=== PATIENT | male | born 1975 | race Caucasian/White ===

== ENCOUNTER 2017-05-11 15:37 | Emergency (ER) | payer OTHER ==
[~2017-05-11] VITALS: Ht 185.4 cm; Wt 99.0 kg
[~2017-05-11 15:37] MED LIST: LEVO.05 PO; OMEP20CA2; SERT-129 PO
[2017-05-11 15:44] VITALS: BP 150/98; PULSE 82; RESP 16; TEMP 98.6; O2SAT 96
--- NOTE | 2017-05-11 15:50 | PD ---
HPI Chief Complaint: Fall Time Seen by Provider: 15:50 Travel History International Travel<30 days: No Contact w/Intl Traveler<30days: No Traveled to known affect area: No PFSH Past Medical History Diminished Hearing: No Immunizations Current: No Social History Alcohol Use: Yes (OCCASIONALLY) Tobacco Use: Yes (QUIT 4 YRS AGO) Substance Use: No Allergies-Medications (Allergen,Severity, Reaction): Coded Allergies: No Known Allergies (Verified , 11/15/16) Reported Meds & Prescriptions Reported Meds & Active Scripts Active Sertraline (Sertraline HCl) 100 Mg Tab 200 Mg PO DAILY Synthroid (Levothyroxine Sodium) 50 Mcg Tab 50 Mcg PO DAILY Reported Omeprazole 20 Mg Cap Data Data Last Documented VS Vital Signs Date Time Temp Pulse Resp B/P Pulse Ox O2 Delivery O2 Flow Rate FiO2 05/11/17 15:44 98.6 82 16 150/98 96 Orders Basic Metabolic Panel (Bmp) (05/11/17 15:55) Complete Blood Count With Diff (05/11/17 15:55) Prothrombin Time / Inr (Pt) (05/11/17 15:55) Act Partial Throm Time (Ptt) (05/11/17 15:55) Chest, Single Ap (05/11/17 15:55) Pelvis, Ap Only (Routine) (05/11/17 15:55) Ct Brain W/O Iv Contrast(Rout) (05/11/17 15:55) Ct Cerv Spine W/O Contrast (05/11/17 15:55) Ct Abd/Pel W Iv Contrast(Rout) (05/11/17 15:55) Ct Thorax/ Chest W Iv Contrast (05/11/17 15:55) Ct Thor Spine W/O Contrast (05/11/17 15:55) Ct Lumb Spine W/O Contrast (05/11/17 15:55) Iv Access Insert/Monitor (05/11/17 15:55) Ecg Monitoring (05/11/17 15:55) Oximetry (05/11/17 15:55) Sodium Chloride 0.9% Flush (Ns Flush) (05/11/17 16:00) Rosa Alexander May 11, 2017 15:50
[2017-05-11] MEDS ORDERED: SODIUM CHLORIDE 0.9% FLUSH 10 ML FLUSH IVF PRN (16:00)
--- NOTE | 2017-05-11 16:04 | PD ---
HPI Chief Complaint: Fall Time Seen by Provider: 15:44 Travel History International Travel<30 days: No Contact w/Intl Traveler<30days: No Traveled to known affect area: No History of Present Illness HPI This patient was checking on something up in his attic and fell through the roof to the hardwood floor below. He fell approximately 8-10 feet and landed on his back. He complains of lower back pain. He also struck his head and has headache. He denies loss of consciousness. Has some neck soreness as well. Symptoms moderately severe. Duration 1 hour. He is brought in by paramedics in full immobilization. He does not take any blood thinners. No alleviating factors. Not having arm or leg pain. PFSH Past Medical History Diminished Hearing: No Immunizations Current: No Social History Alcohol Use: Yes Tobacco Use: Yes Substance Use: No Allergies-Medications (Allergen,Severity, Reaction): Coded Allergies: No Known Allergies (Verified , 11/15/16) Reported Meds & Prescriptions Reported Meds & Active Scripts Active Sertraline (Sertraline HCl) 100 Mg Tab 200 Mg PO DAILY Synthroid (Levothyroxine Sodium) 50 Mcg Tab 50 Mcg PO DAILY Reported Omeprazole 20 Mg Cap Review of Systems General / Constitutional: No: Fever Eyes: No: Visual changes HENT: Positive: Headaches, Neck Pain Cardiovascular: No: Chest Pain or Discomfort Respiratory: No: Shortness of Breath Gastrointestinal: No: Abdominal Pain Genitourinary: No: Dysuria Musculoskeletal: Positive: Pain Skin: No Rash Neurologic: Positive: Headache, No: Weakness Psychiatric: No: Depression Endocrine: No: Polydipsia Hematologic/Lymphatic: No: Easy Bruising Physical Exam Narrative GENERAL: Well-nourished, well-developed patient in full mobilization . SKIN: Focused skin assessment reveals no rash and nodules. Skin is Warm and dry. HEAD: Atraumatic. Normocephalic. EYES: Pupils equal and round. No scleral icterus. No injection or drainage. ENT: No nasal bleeding or discharge. Mucous membranes pink and moist. NECK: Trachea midline. No JVD. No midline tenderness. C-collar maintained. CARDIOVASCULAR: Regular rate and rhythm. No murmur appreciated. RESPIRATORY: No accessory muscle use. Clear to auscultation. Breath sounds equal bilaterally. GASTROINTESTINAL: Abdomen soft, non-tender, nondistended. Hepatic and splenic margins not palpable. MUSCULOSKELETAL: No obvious deformities. No clubbing. No cyanosis. No edema. No midline tenderness of the spine. He has a linear abrasion to the right lower rib cage. No crepitus or bruising. NEUROLOGICAL: Awake and alert. No obvious cranial nerve deficits. Motor grossly within normal limits. Normal speech. PSYCHIATRIC: Appropriate mood and affect; insight and judgment normal. Data Data Last Documented VS Vital Signs Date Time Temp Pulse Resp B/P Pulse Ox O2 Delivery O2 Flow Rate FiO2 05/11/17 16:13 98 Room Air 05/11/17 15:44 98.6 82 16 150/98 Orders Basic Metabolic Panel (Bmp) (05/11/17 15:55) Complete Blood Count With Diff (05/11/17 15:55) Prothrombin Time / Inr (Pt) (05/11/17 15:55) Act Partial Throm Time (Ptt) (05/11/17 15:55) Chest, Single Ap (05/11/17 15:55) Pelvis, Ap Only (Routine) (05/11/17 15:55) Ct Brain W/O Iv Contrast(Rout) (05/11/17 15:55) Ct Cerv Spine W/O Contrast (05/11/17 15:55) Ct Abd/Pel W Iv Contrast(Rout) (05/11/17 15:55) Ct Thorax/ Chest W Iv Contrast (05/11/17 15:55) Ct Thor Spine W/O Contrast (05/11/17 15:55) Ct Lumb Spine W/O Contrast (05/11/17 15:55) Iv Access Insert/Monitor (05/11/17 15:55) Ecg Monitoring (05/11/17 15:55) Oximetry (05/11/17 15:55) Sodium Chloride 0.9% Flush (Ns Flush) (05/11/17 16:00) Labs Laboratory Tests Test 05/11/17 16:00 White Blood Count 8.0 TH/MM3 Red Blood Count 4.67 MIL/MM3 Hemoglobin 13.6 GM/DL Hematocrit 41.0 % Mean Corpuscular Volume 87.6 FL Mean Corpuscular Hemoglobin 29.0 PG Mean Corpuscular Hemoglobin 33.1 % Concent Red Cell Distribution Width 13.5 % Platelet Count 224 TH/MM3 Mean Platelet Volume 7.2 FL Neutrophils (%) (Auto) 69.7 % Lymphocytes (%) (Auto) 23.0 % Monocytes (%) (Auto) 4.7 % Eosinophils (%) (Auto) 2.1 % Basophils (%) (Auto) 0.5 % Neutrophils # (Auto) 5.6 TH/MM3 Lymphocytes # (Auto) 1.8 TH/MM3 Monocytes # (Auto) 0.4 TH/MM3 Eosinophils # (Auto) 0.2 TH/MM3 Basophils # (Auto) 0.0 TH/MM3 CBC Comment DIFF FINAL Differential Comment Prothrombin Time 11.2 SEC Prothromb Time International 1.0 RATIO Ratio Activated Partial 23.5 SEC Thromboplast Time Sodium Level 139 MEQ/L Potassium Level 3.8 MEQ/L Chloride Level 105 MEQ/L Carbon Dioxide Level 25.6 MEQ/L Anion Gap 8 MEQ/L Blood Urea Nitrogen 19 MG/DL Creatinine 0.95 MG/DL Estimat Glomerular Filtration 86 ML/MIN Rate Random Glucose 91 MG/DL Calcium Level 9.0 MG/DL MDM Medical Decision Making Medical Screen Exam Complete: Yes Emergency Medical Condition: Yes Medical Record Reviewed: Yes Differential Diagnosis Intracranial hemorrhage, vertebral fracture, intra-abdominal organ injury Narrative Course I have reviewed the patient's electronic medical record. I've ordered a extensive trauma workup. His vital signs are normal he does not meet trauma alert criteria. Case checked out to 5:00 physician to assist with disposition after workup complete Adeel John MD May 11, 2017 16:04
[2017-05-11 16:13] VITALS: O2SAT 98
--- NOTE | 2017-05-11 16:23 | RADRPT ---
EXAM DATE/TIME: 05/11/2017 16:01 [facility] COMPARISON: No previous studies available for comparison. INDICATIONS : Pelvic pain after fall through attic. MEDICAL HISTORY : None. SURGICAL HISTORY : None. ENCOUNTER: Initial ACUITY: 1 day PAIN SCORE: 10/10 LOCATION: Bilateral pelvis and lower back. FINDINGS: Single AP view of the pelvis demonstrates no fracture or dislocation. Mineralization is within normal limits. There is no significant arthropathy. No soft tissue abnormality or radiopaque foreign body i s identified. CONCLUSION: No acute abnormality is identified. Kel Gil MD on May 11, 2017 at 16:19 Board Certified Radiologist. This report was verified electronically.
--- NOTE | 2017-05-11 16:24 | RADRPT ---
EXAM DATE/TIME: 05/11/2017 15:59 [facility] COMPARISON: No previous studies available for comparison. INDICATIONS : Chest pain after fall through attic. MEDICAL HISTORY : None. SURGICAL HISTORY : None. ENCOUNTER: Initial ACUITY: 1 day PAIN SCORE: 4/10 LOCATION: Bilateral chest FINDINGS: Portable AP view of the chest demonstrates a normal-sized cardiac silhouette. No effusion, consolidat ion, or pneumothorax is visualized. The bones and soft tissues demonstrate no acute abnormality. CONCLUSION: No acute cardiopulmonary abnormality is identified. Kel Gil MD on May 11, 2017 at 16:20 Board Certified Radiologist. This report was verified electronically.
[2017-05-11 16:37] LABS: AUTOMATED NEUTROPHIL # 5.6 TH/MM3 (1.8-7.7); BASOPHIL % 0.5 % (0.0-2.0); EOSINOPHIL # 0.2 TH/MM3 (0-0.4); EOSINOPHIL % 2.1 % (0.0-4.0); HEMO FLAGS DIFF FINAL; LYMPHOCYTE # 1.8 TH/MM3 (1.0-4.8); MEAN CELL VOLUME 87.6 FL (80.0-100.0); MEAN CORPUSCULAR HGB CONC 33.1 % (32.0-36.0); MONO % 4.7 % (0.0-8.0); NEUT % 69.7 % (16.0-70.0); PLATELET COUNT 224 TH/MM3 (150-450); RED BLOOD COUNT 4.67 MIL/MM3 (4.50-5.90); RED CELL DISTRIBUTION WIDTH 13.5 % (11.6-17.2)
[2017-05-11 16:43] LABS: APTT (PATIENT) 23.5 SEC (24.3-30.1); PROTHROMBIN TIME - PATIENT 11.2 SEC (9.8-11.6)
[2017-05-11 16:51] LABS: BICARBONATE 25.6 MEQ/L (21.0-32.0); POTASSIUM 3.8 MEQ/L (3.5-5.1)
[2017-05-11 17:07] VITALS: BP 136/86; PULSE 85; RESP 16; O2SAT 99
--- NOTE | 2017-05-11 17:45 | RADRPT ---
EXAM DATE/TIME: 05/11/2017 17:24 [facility] COMPARISON: No previous studies available for comparison. INDICATIONS : Fall from ceiling today. RADIATION DOSE: 52.69 CTDIvol (mGy) MEDICAL HISTORY : None SURGICAL HISTORY : None. ENCOUNTER: Initial ACUITY: 1 day PAIN SCALE: 4/10 LOCATION: Bilateral head TECHNIQUE: Multiple contiguous axial images were obtained of the head. Using automated exposure control and adj ustment of the mA and/or kV according to patient size, radiation dose was kept as low as reasonably a chievable to obtain optimal diagnostic quality images. DICOM format image data is available electro nically for review and comparison. FINDINGS: CEREBRUM: The ventricles are normal for age. No evidence of midline shift, mass lesion, hemorrhage or acute in farction. No extra-axial fluid collections are seen. POSTERIOR FOSSA: There is some questionable increased density in the midbrain. This could be a contusion involving the midbrain versus artifact from the base of the skull. No definite surrounding edema is seen. The four th ventricle is normal in size and midline in position. EXTRACRANIAL: The visualized portion of the orbits is intact. Chronic sinus disease in the left maxillary sinus. SKULL: The calvaria is intact. No evidence of skull fracture. CONCLUSION: 1. Questionable increased density in the midbrain seen at the base of the skull. This could be a cont usion versus artifact from the base of skull. Recommend correlation with patient's current clinical e xam. 2. Otherwise, the rest of the brain is grossly unremarkable. Neftaly Hendrix MD on May 11, 2017 at 17:39 Board Certified Radiologist. This report was verified electronically.
[2017-05-11] MEDS ORDERED: IOHEXOL 350 MG/ML 10 ML VIAL (for RAD DIAG) IV ONE (17:52)
--- NOTE | 2017-05-11 17:54 | RADRPT ---
EXAM DATE/TIME: 05/11/2017 17:24 [facility] COMPARISON: No previous studies available for comparison. INDICATIONS : Fall from ceiling today. RADIATION DOSE: 21.05 CTDIvol (mGy) MEDICAL HISTORY : None SURGICAL HISTORY : None. ENCOUNTER: Initial ACUITY: 1 day PAIN SCALE: 6/10 LOCATION: Bilateral neck TECHNIQUE: Volumetric scanning of the cervical spine was performed. Multiplanar reconstructions in the sagittal, coronal and oblique axial planes were performed. Using automated exposure control and adjustment o f the mA and/or kV according to patient size, radiation dose was kept as low as reasonably achievable to obtain optimal diagnostic quality images. DICOM format image data is available electronically f or review and comparison. FINDINGS: VERTEBRAE: Normal vertebral body height. ALIGNMENT: No evidence of subluxation. C2-C3: The bony spinal canal is normal in size. No evidence of disc bulge or herniation. The neural forami na are bilaterally patent. C3-C4: The bony spinal canal is normal in size. No evidence of disc bulge or herniation. The neural forami na are bilaterally patent. C4-C5: The bony spinal canal is normal in size. No evidence of disc bulge or herniation. The neural forami na are bilaterally patent. C5-C6: The bony spinal canal is normal in size. No evidence of disc bulge or herniation. The neural forami na are bilaterally patent. C6-C7: The bony spinal canal is normal in size. No evidence of disc bulge or herniation. The neural forami na are bilaterally patent. C7-T1: The bony spinal canal is normal in size. No evidence of disc bulge or herniation. The neural forami na are bilaterally patent. CONCLUSION: Normal examination for a patient of this age. Neftaly Hendrix MD on May 11, 2017 at 17:49 Board Certified Radiologist. This report was verified electronically.
--- NOTE | 2017-05-11 18:10 | RADRPT ---
EXAM DATE/TIME: 05/11/2017 17:36 [facility] COMPARISON: No previous studies available for comparison. INDICATIONS : Trauma, fall from ceiling today. IV CONTRAST: 90 cc Omnipaque 350 (iohexol) IV ; Cumulative dose for multiple exams. ORAL CONTRAST: No oral contrast ingested. RADIATION DOSE: 9.96 CTDIvol (mGy) ; Combined studies MEDICAL HISTORY : None SURGICAL HISTORY : None. ENCOUNTER: Initial ACUITY: 1 day PAIN SCALE: 4/10 LOCATION: Bilateral abdomen TECHNIQUE: Volumetric scanning of the abdomen and pelvis was performed. Using automated exposure control and ad justment of the mA and/or kV according to patient size, radiation dose was kept as low as reasonably achievable to obtain optimal diagnostic quality images. DICOM format image data is available electro nically for review and comparison. FINDINGS: LOWER LUNGS: Minimal atelectasis at the left lung base. LIVER: Diffusely decreased hepatic attenuation without evidence for volume loss, mass, or intrapelvic ductal dilatation. Gallbladder is distended and appears unremarkable. SPLEEN: Normal size without lesion. PANCREAS: Within normal limits. KIDNEYS: Normal in size and shape. There is no mass, stone or hydronephrosis. ADRENAL GLANDS: Coarse calcifications noted in the left adrenal gland likely reflect sequela of prior adrenal hemorrh age. Right adrenal gland is normal in appearance. VASCULAR: There is no aortic aneurysm. BOWEL/MESENTERY: The stomach, small bowel, and colon demonstrate no acute abnormality. There is no free intraperitone al air or fluid. The appendix is visualized and normal. ABDOMINAL WALL: Within normal limits. RETROPERITONEUM: There is no lymphadenopathy or hemorrhage. BLADDER: No wall thickening or mass. REPRODUCTIVE: Nonspecific prostate calcifications. INGUINAL: Small fat containing bilaterally normal hernias. MUSCULOSKELETAL: No acute bony fractures or focal bony destruction. CONCLUSION: 1. No acute traumatic injury in the abdomen or pelvis as questioned. 2. Minimal left basilar atelectasis. 3. Mild hepatic steatosis. 4. Left adrenal coarse calcifications consistent with prior adrenal hemorrhage. 5. Small bilateral fat-containing inguinal hernias. Kunal Guerrier MD on May 11, 2017 at 18:01 Board Certified Radiologist. This report was verified electronically.
--- NOTE | 2017-05-11 18:14 | RADRPT ---
EXAM DATE/TIME: 05/11/2017 17:36 [facility] COMPARISON: No previous studies available for comparison. INDICATIONS : Trauma, fall from ceiling today. IV CONTRAST: 90 cc Omnipaque 350 (iohexol) IV ; Cumulative dose for multiple exams. RADIATION DOSE: 9.96 CTDIvol (mGy) MEDICAL HISTORY : None SURGICAL HISTORY : None. ENCOUNTER: Initial ACUITY: 1 day PAIN SCALE: 3/10 LOCATION: Bilateral chest TECHNIQUE: Volumetric scanning of the chest was performed. Using automated exposure control and adjustment of t he mA and/or kV according to patient size, radiation dose was kept as low as reasonably achievable to obtain optimal diagnostic quality images. DICOM format image data is available electronically for review and comparison. FINDINGS: LUNGS: There is mild linear opacities in the posterior left mid and lower lung and in the medial right midlu ng suggesting atelectasis. There is no consolidation or pneumothorax. No concerning pulmonary nodul e is visualized. PLEURA: There is no pleural thickening or pleural effusion. MEDIASTINUM: The heart and great vessels demonstrate no acute abnormality. There is no mediastinal or hilar lymph adenopathy. AXILLAE: Within normal limits. No lymphadenopathy. SKELETAL: No fracture seen. MISCELLANEOUS: The supraclavicular region is unremarkable. CONCLUSION: Atelectasis in the posterior lungs. No evidence of pneumothorax. No rib fractures seen. Derrick Hyatt MD on May 11, 2017 at 18:07 Board Certified Radiologist. This report was verified electronically.
[2017-05-11] MEDS ORDERED: KETOROLAC TROMETHAMINE 30 MG/ML (IVP) VIAL IV PUSH ONE (18:15)
[2017-05-11] MEDS ORDERED: ULTR50TA5 PO (18:29)
[2017-05-11] MEDS ORDERED: CYCL1TAB29 PO (18:29)
--- NOTE | 2017-05-11 18:30 | PD ---
Data Data Last Documented VS Vital Signs Date Time Temp Pulse Resp B/P Pulse Ox O2 Delivery O2 Flow Rate FiO2 05/11/17 17:07 85 16 136/86 99 Room Air 05/11/17 15:44 98.6 Orders Basic Metabolic Panel (Bmp) (05/11/17 15:55) Complete Blood Count With Diff (05/11/17 15:55) Prothrombin Time / Inr (Pt) (05/11/17 15:55) Act Partial Throm Time (Ptt) (05/11/17 15:55) Chest, Single Ap (05/11/17 15:55) Pelvis, Ap Only (Routine) (05/11/17 15:55) Ct Brain W/O Iv Contrast(Rout) (05/11/17 15:55) Ct Cerv Spine W/O Contrast (05/11/17 15:55) Ct Abd/Pel W Iv Contrast(Rout) (05/11/17 15:55) Ct Thorax/ Chest W Iv Contrast (05/11/17 15:55) Ct Thor Spine W/O Contrast (05/11/17 15:55) Ct Lumb Spine W/O Contrast (05/11/17 15:55) Iv Access Insert/Monitor (05/11/17 15:55) Ecg Monitoring (05/11/17 15:55) Oximetry (05/11/17 15:55) Sodium Chloride 0.9% Flush (Ns Flush) (05/11/17 16:00) Iohexol 350 Inj (Omnipaque 350 Inj) (05/11/17 17:52) Ketorolac Inj (Toradol Inj) (05/11/17 18:15) Labs Laboratory Tests Test 05/11/17 16:00 White Blood Count 8.0 TH/MM3 Red Blood Count 4.67 MIL/MM3 Hemoglobin 13.6 GM/DL Hematocrit 41.0 % Mean Corpuscular Volume 87.6 FL Mean Corpuscular Hemoglobin 29.0 PG Mean Corpuscular Hemoglobin 33.1 % Concent Red Cell Distribution Width 13.5 % Platelet Count 224 TH/MM3 Mean Platelet Volume 7.2 FL Neutrophils (%) (Auto) 69.7 % Lymphocytes (%) (Auto) 23.0 % Monocytes (%) (Auto) 4.7 % Eosinophils (%) (Auto) 2.1 % Basophils (%) (Auto) 0.5 % Neutrophils # (Auto) 5.6 TH/MM3 Lymphocytes # (Auto) 1.8 TH/MM3 Monocytes # (Auto) 0.4 TH/MM3 Eosinophils # (Auto) 0.2 TH/MM3 Basophils # (Auto) 0.0 TH/MM3 CBC Comment DIFF FINAL Differential Comment Prothrombin Time 11.2 SEC Prothromb Time International 1.0 RATIO Ratio Activated Partial 23.5 SEC Thromboplast Time Sodium Level 139 MEQ/L Potassium Level 3.8 MEQ/L Chloride Level 105 MEQ/L Carbon Dioxide Level 25.6 MEQ/L Anion Gap 8 MEQ/L Blood Urea Nitrogen 19 MG/DL Creatinine 0.95 MG/DL Estimat Glomerular Filtration 86 ML/MIN Rate Random Glucose 91 MG/DL Calcium Level 9.0 MG/DL MDM Supervised Visit with TERRANCE: No Narrative Course Care was assumed from Dr. John at 1700 pending a trauma workup. This has now been completed and is unremarkable. There is a possible lesion noted in the brain but the patient's clinical status does not corroborate that finding. The patient will be discharged home. Diagnosis Primary Impression: Blunt trauma Patient Instructions: Cervical Strain (DC), General Instructions Med/Other Pt SpecificInfo: Prescription(s) given Scripts Cyclobenzaprine (Flexeril)10 Mg Tab10 Mg PO TID #30 TAB Ref 0 Prov:Jeny Azevedo MD 05/11/17 Tramadol (Ultram)50 Mg Tab50 Mg PO Q4H PRN (PAIN) #12 TAB Ref 0 Prov:Jeny Azevedo MD 05/11/17 Disposition: 01 DISCHARGE HOME Condition: Stable Jeny Azevedo MD May 11, 2017 18:30
--- NOTE | 2017-05-11 18:47 | RADRPT ---
EXAM DATE/TIME: 05/11/2017 17:36 [facility] COMPARISON: No previous studies available for comparison. INDICATIONS : Fall through ceiling today. RADIATION DOSE: ; Reconstructed from previous dataset MEDICAL HISTORY : None SURGICAL HISTORY : None. ENCOUNTER: Initial ACUITY: 1 day PAIN SCALE: 7/10 LOCATION: mid-back. TECHNIQUE: Volumetric scanning of the thoracic spine was performed. Multiplanar reconstructions in the sagittal , coronal and oblique axial planes were performed. Using automated exposure control and adjustment o f the mA and/or kV according to patient size, radiation dose was kept as low as reasonably achievable to obtain optimal diagnostic quality images. DICOM format image data is available electronically f or review and comparison. FINDINGS: There is minimal curvature of the thoracic spine convex towards the right. Vertebral bodies are in n ormal alignment in lateral projection. There is 15% loss of height of the anterior superior T12 vert ebral body and an angulation of the anterior cortex of T12. There degenerative changes in the mid th oracic spine with bridging anterior paravertebral ossification from T6-T9. The posterior elements ar e grossly normal. CONCLUSION: 15% compression fracture anterior superior T12 vertebral body. No evidence of hyperangulation or spo ndylolisthesis. Derrick Hytat MD on May 11, 2017 at 18:41 Board Certified Radiologist. This report was verified electronically.
--- NOTE | 2017-05-11 18:49 | RADRPT ---
EXAM DATE/TIME: 05/11/2017 17:36 [facility] COMPARISON: No previous studies available for comparison. INDICATIONS : Trauma, fall from ceiling today. RADIATION DOSE: ; Reconstructed from previous dataset MEDICAL HISTORY : None SURGICAL HISTORY : None. ENCOUNTER: Initial ACUITY: 1 day PAIN SCALE: 7/10 LOCATION: Bilateral lower back TECHNIQUE: Volumetric scanning of the lumbar spine was performed. Multiplanar reconstructions in the sagittal, coronal and oblique axial planes were performed. Using automated exposure control and adjustment of the mA and/or kV according to patient size, radiation dose was kept as low as reasonably achievable t o obtain optimal diagnostic quality images. DICOM format image data is available electronically for review and comparison. FINDINGS: There is a 15% compression deformity of the anterior superior endplate of T12. No involvement of the posterior cortex or pedicles. No subluxation. Vertebral bodies of the lumbar spine are in normal alignment with preservation of vertebral body heig ht. The posterior elements are in normal alignment. No lumbar fractures seen. CONCLUSION: 1. No fracture seen in the lumbar spine. 2. 18% compression fracture anterior superior T. 12. Derrick Hyatt MD on May 11, 2017 at 18:44 Board Certified Radiologist. This report was verified electronically.
[2017-05-11] MEDS ORDERED: PERC5TAB12 PO (18:53)
[2017-05-11] MEDS ORDERED: KETO10 PO (19:04)
== END 2017-05-11 20:08 | disposition home or self-care (01) ==
LOC: NEPD 15:37
DX: M48.54XA Collapsed vertebra, not elsewhere classified, thoracic region, initial encounter for fracture (principal); R51 Headache; R07.9 Chest pain, unspecified; W13.2XXA Fall from, out of or through roof, initial encounter; Y92.008 Other place in unspecified non-institutional (private) residence as the place of occurrence of the external cause
CPT/HCPCS: 70450; 71010; 71260; 72125; 72128; 72131; 72170; 74177; 80048; 85025; 85610; 85730; 96374; 99285; J1885; L0200; L0484; Q9967

== ENCOUNTER → 2018-04-11 | Outpatient (CLI) | payer OTHER ==
[~2018-04-11] MED LIST changes: +CYCL10TA PO; +IBUP1TAB7 PO
[2018-04-11 13:55] LABS: ALBUMIN 4.1 GM/DL (3.4-5.0); AST (GOT) 18 U/L (15-37); BLOOD UREA NITROGEN 19 MG/DL (7-18); CALCIUM 9.1 MG/DL (8.5-10.1); CHLORIDE 106 MEQ/L (98-107); CHOLESTEROL 194 MG/DL (120-200); CREATININE 0.86 MG/DL (0.60-1.30); GLOMERULAR FILTRATION RATE 96 ML/MIN (>89); GLUCOSE,FASTING 98 MG/DL (74-99); SODIUM (NA) 141 MEQ/L (136-145)
[2018-04-11 14:07] LABS: ALKALINE PHOSPHATASE 55 U/L (45-117); ALT (GPT) 32 U/L (12-78); HDL CHOLESTEROL 36.6 MG/DL (40.0-60.0); LDL CHOLESTEROL 110 MG/DL (0-99); TOTAL BILIRUBIN ADULT 0.6 MG/DL (0.2-1.0); TOTAL PROTEIN 7.3 GM/DL (6.4-8.2); TRIGLYCERIDES 237 MG/DL (42-150)
[2018-04-11 16:44] LABS: HEMOGLOBIN A1C 5.8 % (4.3-6.0)
== END ==
LOC: PLAB 09:40
PROVIDERS: ATTEND Family Medicine
DX: E03.9 Hypothyroidism, unspecified (principal); Z83.3 Family history of diabetes mellitus; Z68.29 Body mass index [BMI] 29.0-29.9, adult
CPT/HCPCS: 36415; 80053; 80061; 83036; 84443